=== PATIENT | female | born 1975 | race Hispanic/Latino ===

== ENCOUNTER 2017-12-01 12:16 | Emergency (ER) | payer OTHER ==
[~2017-12-01 12:16] MED LIST: ALBU8.5H8 IH; CIPR-245 PO; PRED10TA3 PO; PRED20TA3 PO; [UNRECOGNIZED DRUG - CODE] PO
[2017-12-01] MEDS ORDERED: METHYLPREDNISOLONE SOD SUCC 40MG/ML 1ML ONE (13:01)
[2017-12-01] MEDS ORDERED: DiphenhydrAMINE HCL 50 MG/ML VIAL ONE (13:01)
[2017-12-01] MEDS ORDERED: MORPHINE SULFATE 2 MG/ML 1ML SYG ONE (13:01)
[2017-12-01] MEDS ORDERED: SODIUM CHLORIDE 0.9% 1000ML 1,000 ML IV ONE (13:01)
[2017-12-01] MEDS ORDERED: METOCLOPRAMIDE 10 MG/2 ML VIAL ONE (13:01)
[2017-12-01 13:50] LABS: BASOPHILS % (AUTO) 0.8 % (0.0-5.0); EOSINOPHILS % (AUTO) 1.1 % (0.0-8.0); HEMATOCRIT 31.3 % (36-48); LYMPHOCYTES % (AUTO) 31.3 % (21.0-51.0); MEAN CORPUSCULAR HEMOGLOBIN 20.2 pg (27.0-33.0); MEAN CORPUSCULAR HGB CONC 30.3 g/dL (32.0-36.0); MEAN CORPUSCULAR VOLUME 66.8 fL (79-99); MONOCYTES % (AUTO) 8.6 % (3.0-13.0); NEUTROPHILS % (AUTO) 58.2 % (40.0-77.0); NUCLEATED RED BLOOD CELLS 0.1 % (0.0-0.19); PLATELET COUNT (AUTO) 300 K/uL (130-400); RED BLOOD CELL COUNT(AUTO) 4.69 MIL/uL (4.00-5.50); RED CELL DISTRIBUTION WIDTH 17.7 % (11.0-15.5); WHITE BLOOD COUNT (AUTO) 6.3 K/uL (4.8-10.8)
[2017-12-01 14:15] LABS: CREATININE 0.9 mg/dL (0.5-1.5); POTASSIUM 3.6 mmol/L (3.5-5.1)
[2017-12-01 14:19] LABS: APPEARANCE,URINE Clear (CLEAR); BILIRUBIN,URINE Negative (NEGATIVE); COLOR,URINE Yellow (YELLOW); GLUCOSE, URINE (UA) Negative (NEGATIVE); KETONES,URINE Negative (NEGATIVE); LEUKOCYTE ESTERASE ,URINE Negative (NEGATIVE); NITRATE,URINE Negative (NEGATIVE); OCCULT BLOOD,URINE Small (NEGATIVE); PH,URINE 6.5 (5.0-8.0); PROTEIN,URINE Negative (NEGATIVE); UROBILINOGEN,URINE 0.2 mg/dL (0.2-1.0)
[2017-12-01 14:34] LABS: HCG,QUAL RESULT NEGATIVE (NEGATIVE)
[2017-12-01 14:46] LABS: BACTERIA,URINE Rare /HPF (None Seen); SQUAMOUS EPITHELIAL CELL,UR Few /HPF (0-2); WBC,URINE 0-1 /HPF (0-1)
[2017-12-01 14:47] LABS: MUCUS,URINE Rare LPF (None Seen)
== END 2017-12-01 16:21 | disposition home or self-care (01) ==
LOC: EDH 12:16
DX: G43.909 Migraine, unspecified, not intractable, without status migrainosus (principal); J45.909 Unspecified asthma, uncomplicated; Z90.49 Acquired absence of other specified parts of digestive tract; Z98.890 Other specified postprocedural states
CPT/HCPCS: 36415; 70450; 80048; 81001; 81025; 85025; 96374; 96375; 99285; J1200; J2765; J2920; J7030

== ENCOUNTER 2018-01-12 21:24 | Emergency (ER) | payer OTHER ==
[2018-01-12] MEDS ORDERED: DEXAMETHASONE SOD PHOSPHATE 10MG/ML 1ML VIAL ONE (21:59)
[2018-01-12] MEDS ORDERED: KETOROLAC TROMETHAMINE 30MG/ML ONE (21:59)
== END 2018-01-12 22:19 | disposition home or self-care (01) ==
LOC: EDH 21:24
DX: J02.9 Acute pharyngitis, unspecified (principal); J45.909 Unspecified asthma, uncomplicated; G43.909 Migraine, unspecified, not intractable, without status migrainosus; Z90.49 Acquired absence of other specified parts of digestive tract; Z98.890 Other specified postprocedural states
CPT/HCPCS: 96372 ×2; 99284; J1100; J1885

== ENCOUNTER 2018-05-17 13:17 | Emergency (ER) | payer MEDICAID ==
[2018-05-17 14:20] LABS: BASOPHILS % (AUTO) 1.1 % (0.0-5.0); EOSINOPHILS % (AUTO) 1.1 % (0.0-8.0); HEMATOCRIT 27.4 % (36-48); LYMPHOCYTES % (AUTO) 30.8 % (21.0-51.0); MEAN CORPUSCULAR HEMOGLOBIN 18.8 pg (27.0-33.0); MEAN CORPUSCULAR HGB CONC 29.1 g/dL (32.0-36.0); MEAN CORPUSCULAR VOLUME 64.6 fL (79-99); MONOCYTES % (AUTO) 6.3 % (3.0-13.0); NEUTROPHILS % (AUTO) 60.7 % (40.0-77.0); NUCLEATED RED BLOOD CELLS 0.1 % (0.0-0.19); PLATELET COUNT (AUTO) 195 K/uL (130-400); RED BLOOD CELL COUNT(AUTO) 4.24 MIL/uL (4.00-5.50); RED CELL DISTRIBUTION WIDTH 18.5 % (11.0-15.5); WHITE BLOOD COUNT (AUTO) 5.5 K/uL (4.8-10.8)
[2018-05-17 14:29] LABS: CREATININE 0.9 mg/dL (0.5-1.5); POTASSIUM 3.3 mmol/L (3.5-5.1)
== END 2018-05-17 15:49 | disposition home or self-care (01) ==
LOC: EDH 13:17
DX: I10 Essential (primary) hypertension (principal); D50.9 Iron deficiency anemia, unspecified; R07.89 Other chest pain; J45.909 Unspecified asthma, uncomplicated
CPT/HCPCS: 36415; 71045; 80048; 84484; 85025; 93005

== ENCOUNTER 2018-07-16 01:21 | Emergency (ER) | payer BC, MEDICAID ==
[2018-07-16] MEDS ORDERED: ONDANSETRON HCL 4 MG/2 ML VIAL ONE (01:44)
[2018-07-16 01:55] LABS: APPEARANCE,URINE Clear (CLEAR); BASOPHILS % (AUTO) 0.8 % (0.0-5.0); BILIRUBIN,URINE Negative (NEGATIVE); COLOR,URINE Yellow (YELLOW); EOSINOPHILS % (AUTO) 2.8 % (0.0-8.0); GLUCOSE, URINE (UA) Negative (NEGATIVE); HEMATOCRIT 29.8 % (36-48); KETONES,URINE Negative (NEGATIVE); LEUKOCYTE ESTERASE ,URINE Negative (NEGATIVE); LYMPHOCYTES % (AUTO) 34.3 % (21.0-51.0); MEAN CORPUSCULAR HEMOGLOBIN 21.1 pg (27.0-33.0); MEAN CORPUSCULAR HGB CONC 30.9 g/dL (32.0-36.0); MEAN CORPUSCULAR VOLUME 68.4 fL (79-99); MONOCYTES % (AUTO) 9.4 % (3.0-13.0); NEUTROPHILS % (AUTO) 52.7 % (40.0-77.0); NITRATE,URINE Negative (NEGATIVE); NUCLEATED RED BLOOD CELLS 0.1 % (0.0-0.19); OCCULT BLOOD,URINE Negative (NEGATIVE); PLATELET COUNT (AUTO) 265 K/uL (130-400); PROTEIN,URINE Negative (NEGATIVE); RED BLOOD CELL COUNT(AUTO) 4.36 MIL/uL (4.00-5.50); RED CELL DISTRIBUTION WIDTH 20.9 % (11.0-15.5); UROBILINOGEN,URINE 0.2 mg/dL (0.2-1.0); WHITE BLOOD COUNT (AUTO) 7.7 K/uL (4.8-10.8)
[2018-07-16] MEDS ORDERED: DiphenhydrAMINE HCL 50 MG/ML VIAL ONE (01:55)
[2018-07-16 02:08] LABS: POTASSIUM 3.7 mmol/L (3.5-5.1)
[2018-07-16 02:15] LABS: ALBUMIN 3.6 g/dL (3.5-5.0); BILIRUBIN,TOTAL 0.1 mg/dL (0.2-1.0); TOTAL PROTEIN, SERUM 7.5 g/dL (6.0-8.3)
[2018-07-16] MEDS ORDERED: KETOROLAC TROMETHAMINE 30MG/ML ONE (02:32)
[2018-07-16] MEDS ORDERED: LORAZEPAM 2 MG/ML 1 ML VIAL ONE (02:33)
== END 2018-07-16 05:16 | disposition home or self-care (01) ==
LOC: EDH 01:21
DX: F41.9 Anxiety disorder, unspecified (principal); H53.2 Diplopia; R51 Headache; I10 Essential (primary) hypertension; Z90.49 Acquired absence of other specified parts of digestive tract
CPT/HCPCS: 36415; 80053; 81003; 82550; 84484; 85025; 96365; 96366; 96375; 99285; J1200; J1885; J2060; J2405

== ENCOUNTER 2022-11-09 22:58 | Emergency (ER) | payer BC ==
[~2022-11-09] VITALS: Ht 160 cm; Wt 82.2 kg
[~2022-11-09 22:58] MED LIST changes: -CIPR-245 PO; +CIPR500T10 PO
[2022-11-09 22:59] VITALS: BP 135/86; PULSE 80; RESP 18
[2022-11-09] MEDS ORDERED: CYCL10TA16 PO (23:18)
[2022-11-09] MEDS ORDERED: IBUP-2070 PO (23:18)
[2022-11-09] MEDS ORDERED: KETOROLAC 30MG VIAL (30MG/ML) IM ONE (23:30)
[2022-11-09] MEDS ORDERED: CYCLOBENZAPRINE HCL 10 MG TABLET PO ONE (23:30)
== END 2022-11-09 23:47 | disposition home or self-care (01) ==
LOC: EDH 22:58
DX: M62.830 Muscle spasm of back (principal); M25.511 Pain in right shoulder; I10 Essential (primary) hypertension; F32.A Depression, unspecified; Z90.710 Acquired absence of both cervix and uterus; Z90.49 Acquired absence of other specified parts of digestive tract
CPT/HCPCS: 99284; 96372; J1885

== ENCOUNTER → 2023-05-13 | Outpatient (CLI) | payer OTHER ==
[~2023-05-13] MED LIST changes: +CYCL10TA16 PO; +IBUP-2070 PO
== END | disposition home or self-care (01) ==
LOC: RAH 10:46
PROVIDERS: ATTEND Internal Medicine Cardiovascular Disease
DX: Z13.6 Encounter for screening for cardiovascular disorders (principal); R55 Syncope and collapse; R06.00 Dyspnea, unspecified
CPT/HCPCS: 75571

== ENCOUNTER → 2024-06-29 | Outpatient (CLI) | payer BC ==
[2024-06-29 12:36] LABS: ALBUMIN 3.4 g/dL (3.5-5.0); BILIRUBIN,TOTAL 0.3 mg/dL (0.2-1.0); POTASSIUM 4.4 mmol/L (3.5-5.1); TOTAL PROTEIN, SERUM 7.3 g/dL (6.0-8.3)
== END | disposition home or self-care (01) ==
LOC: LAB 10:56
PROVIDERS: ATTEND Student in an Organized Health Care Education/Training Program
DX: I11.9 Hypertensive heart disease without heart failure (principal); R55 Syncope and collapse
CPT/HCPCS: 36415; 80053

== ENCOUNTER → 2025-02-24 | Outpatient (CLI) | payer BC ==
[~2025-02-24] MED LIST changes: +CIPR-514 PO; -CIPR500T10 PO; +IBUP-1492 PO; -IBUP-2070 PO
--- NOTE | 2025-02-26 10:30 | HMCIMG ---
EXAM: MR Lumbar Spine Without Intravenous Contrast. CLINICAL HISTORY: Lumbago with sciatica, right side. TECHNIQUE: Magnetic resonance images of the lumbar spine in multiple planes. CONTRAST: None. COMPARISON: None. FINDINGS: For this examination, spinal levels were labeled assuming five [id number], lumbar-type vertebrae, with the inferior labeled L5. No acute fracture. Mild levoscoliosis. Exaggerated lumbar lordosis. Mild multilevel spondylosis is evident by small marginal osteophytes and facet joint arthropathy. Mild multilevel disc desiccation. Normal vertebral body and disc heights. Normal marrow signal of the vertebrae. Conus medullaris terminates at the T12-L1 level. No abnormal epidural masses. Moderate subcutaneous edema in the lower back. Individual spinal levels are described as follows: T12-L1: No disc bulge or herniation. No neural foraminal, lateral recess,s or spinal canal stenosis. L1-L2: No disc bulge or herniation. No neural foraminal, lateral recess, ss or spinal canal stenosis. L2-L3: No disc bulge or herniation. No neural foraminal, lateral recess, or spinal canal stenosis. L3-L4: 3 mm disc osteophyte complex bulge causing mild indentation on the anterior thecal sac. No neural foraminal or lateral recess stenosis. L4-L5: 3 mm disc osteophyte complex bulge causing mild indentation on the anterior thecal sac. No neural foraminal or lateral recess stenosis. L5-S1: 3 mm disc osteophyte complex bulge causing mild indentation on the epidural fat. No neural foraminal, lateral recess, or spinal canal stenosis. IMPRESSION: Mild levoscoliosis. Exaggerated lumbar lordosis. Mild multilevel spondylosis. Mild indentation on the anterior thecal sac at the L3-L4 and L4-L5 levels. Mild indentation on the epidural fat at the L5-S1 level. /[place]
== END | disposition home or self-care (01) ==
LOC: RAH 09:20
PROVIDERS: ATTEND Family Medicine
DX: S20.229A Contusion of unspecified back wall of thorax, initial encounter (principal); S30.0XXA Contusion of lower back and pelvis, initial encounter; M54.41 Lumbago with sciatica, right side; M53.3 Sacrococcygeal disorders, not elsewhere classified; M41.86 Other forms of scoliosis, lumbar region; M25.78 Osteophyte, vertebrae; M47.816 Spondylosis without myelopathy or radiculopathy, lumbar region; X58.XXXA Exposure to other specified factors, initial encounter; Y93.89 Activity, other specified; Y92.89 Other specified places as the place of occurrence of the external cause; Y99.8 Other external cause status
CPT/HCPCS: 72148